=== PATIENT | male | born 1980 | race Caucasian/White ===

== ENCOUNTER 2018-06-01 04:34 | Emergency (ER) | payer BC, OTHER ==
[2018-06-01] MEDS: Lactated Ringers 1,000 ML IV SCH ×2 (05:25→09:14)
[2018-06-01] MEDS ORDERED: Ondansetron 4 MG/2 ML SDV IVPUSH PRN (05:45)
[2018-06-01] MEDS ORDERED: Pantoprazole 40 MG Vial IVPUSH SCH (05:45)
[2018-06-01] MEDS ORDERED: Lactated Ringers 1,000 ML ONE (09:14)
--- NOTE | 2018-06-02 08:44 | EDM.PDOC ---
ED HPI GENERAL MEDICAL PROBLEM - General Chief Complaint: Gastrointestinal Problem Stated Complaint: nausea and diarrhea Time Seen by Provider: 06/01/18 05:34 Source of Information: Reports: Patient History Limitations: Reports: No Limitations - History of Present Illness INITIAL COMMENTS - FREE TEXT/NARRATIVE: Smith is a 38 yo male who presents to the ED with complaints of nausea and vomiting. States symptoms started Wednesday morning. States he didn't eat anything out of the norm and thought he could fight it off but hasn't gotten any better. Reports diarrhea stools that have changed in color from orange to green to black. States he has muscle aches as well. Denies any fevers. Unable to keep anything down and hasn't been able to drink any fluids. States he still has his appendix and gallbladder. 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 [No Known Home Meds] 06/24/14 [History] Past Medical History Respiratory History: Reports: Asthma, Bronchitis, Recurrent, Pneumonia, Recurrent Neurological History: Reports: Concussion - Past Surgical History Respiratory Surgical History: Reports: None Neurological Surgical History: Reports: None Social & Family History - Family History Family Medical History: Noncontributory - Tobacco Use Smoking Status *Q: Never Smoker - Recreational Drug Use Recreational Drug Use: No ED ROS GENERAL - Review of Systems Review Of Systems: See Below Constitutional: Reports: Fatigue, Decreased Appetite. Denies: Fever, Chills HEENT: Reports: No Symptoms Respiratory: Reports: No Symptoms. Denies: Shortness of Breath Cardiovascular: Denies: Chest Pain, Lightheadedness, Palpitations GI/Abdominal: Reports: Abdominal Pain, Diarrhea, Decreased Appetite, Flatus, Nausea, Vomiting. Denies: Black Stool, Bloody Stool, Distension : Reports: No Symptoms Musculoskeletal: Reports: Muscle Stiffness Skin: Reports: No Symptoms Neurological: Reports: No Symptoms Psychiatric: Reports: No Symptoms ED EXAM, GI/ABD - Physical Exam Exam: See Below Exam Limited By: No Limitations General Appearance: Alert, Mild Distress. No: Active Emesis Eyes: Bilateral: Normal Appearance Ears: Normal External Exam, Normal Canal, Hearing Grossly Normal, Normal TMs Nose: Normal Inspection, No Blood Throat/Mouth: Normal Inspection, Normal Lips, Normal Teeth, Normal Gums, Normal Oropharynx, Normal Voice, No Airway Compromise, Other (oral mucosa is dry) Head: Atraumatic, Normocephalic Neck: Normal Inspection, Supple, Non-Tender Respiratory/Chest: No Respiratory Distress, Lungs Clear, Normal Breath Sounds, No Accessory Muscle Use Cardiovascular: Regular Rate, Rhythm, No Edema, No Murmur GI/Abdominal Exam: Soft, Abnormal Bowel Sounds (hyperactive). No: Distended, Guarding, Rigid, Rebound, Mass Extremities: Normal Inspection Neurological: Alert, Oriented, Normal Cognition, No Motor/Sensory Deficits Psychiatric: Normal Affect, Normal Mood Skin Exam: Warm, Dry, Intact, Normal Color, No Rash Course - Vital Signs Last Recorded V/S: Last Vital Signs Temp 98.0 F 06/01/18 04:51 Pulse 90 06/01/18 04:51 Resp 16 06/01/18 04:51 BP 133/99 H 06/01/18 04:51 Pulse Ox 96 06/01/18 04:51 - Orders/Labs/Meds Labs: Laboratory Tests 06/01/18 06/01/18 06/01/18 Range/Units 05:20 05:20 05:46 WBC 5.9 (5.0-10.0) 10^3/uL RBC 6.19 H (4.50-6.00) 10^6/uL Hgb 18.4 H* (14.0-18.0) g/dL Hct 50.6 (40.0-54.0) % MCV 81.7 L (82.0-94.0) fL MCH 29.7 (27.0-32.0) pg MCHC 36.4 (33.0-38.0) g/dL RDW Coeff of Yoel 13.3 (11.0-15.0) % Plt Count 244 (150-400) 10^3/uL Neut % (Auto) 65.8 (35-85) % Lymph % (Auto) 16.9 (10-55) % Pierce % (Auto) 15.0 (0-16) % Eos % (Auto) 2.0 (0-5) % Baso % (Auto) 0.3 (0-3) % Neut # (Auto) 3.90 (1.80-7.00) 10^3/uL Lymph # (Auto) 1.00 (1.00-4.80) 10^3/uL Pierce # (Auto) 0.89 H (0.00-0.80) 10^3/uL Eos # (Auto) 0.12 (0.00-0.45) 10^3/uL Baso # (Auto) 0.02 10^3/uL Sodium 140 (136-145) mEq/L Potassium 3.5 (3.5-5.0) mEq/L Chloride 104 (98-106) mEq/L Carbon Dioxide 21 (21-32) mmol/L BUN 18 (7-18) mg/dL Creatinine 1.6 H (0.7-1.3) mg/dL Est Cr Clr Drug Dosing 73.49 mL/min Estimated GFR (MDRD) 49 L (>=60) mL/min Glucose 157 H D (75-99) mg/dL Calcium 8.8 (8.4-10.1) mg/dL Magnesium 2.1 (1.8-2.4) mg/dL Total Bilirubin 0.5 (0.0-1.0) mg/dL AST 23 (15-37) U/L ALT 57 (12-78) U/L Alkaline Phosphatase 57 (46-116) U/L C-Reactive Protein 10.3 H (0.2-0.8) mg/dL Total Protein 7.9 (6.4-8.2) g/dL Albumin 4.0 (3.4-5.0) g/dL Amylase 17 L (25-115) U/L Urine Color Yellow (YELLOW) Urine Appearance Clear (CLEAR) Urine pH 6.0 (4.5-8.0) Ur Specific [place] >= 1.030 H (1.003-1.020) Urine Protein 100 H (NEGATIVE) mg/dL Urine Glucose (UA) Negative (NEGATIVE) mg/dL Urine Ketones Negative (NEGATIVE) mg/dL Urine Occult Blood Negative (NEGATIVE) Urine Nitrite Negative (NEGATIVE) Urine Bilirubin Negative (NEGATIVE) Urine Urobilinogen 0.2 (0.2-1.0) EU/dL Ur Leukocyte Esterase Negative (NEGATIVE) Urine RBC Not seen (0-5) /HPF Urine WBC 5-10 H (0-5) /HPF Hyaline Casts Occasional H (NOT SEEN) /LPF Granular Casts Occasional (NOT SEEN) /LPF Urine Mucus Few H (NOT SEEN) /HPF Meds: Medications Discontinued Medications Generic Name Dose Route Start Last Admin Trade Name Freq PRN Reason Stop Dose Admin Lactated Ringer's 1,000 mls @ 250 mls/hr 06/01/18 05:15 06/01/18 09:14 Ringers, Lactated IV 250 mls/hr ASDIRECTED JOANIE Administration Lactated Ringer's Confirm 06/01/18 09:14 06/01/18 09:14 Ringers, Lactated Administered 06/01/18 09:15 500 mls/hr Dose Administration 1,000 mls @ as directed .ROUTE .STK-MED ONE Ondansetron HCl 4 mg 06/01/18 05:45 06/01/18 05:50 Zofran IVPUSH 4 mg Q6H PRN Administration Nausea Pantoprazole Sodium 40 mg 06/01/18 05:45 06/01/18 05:51 Protonix Iv IVPUSH 40 mg Q24H JOANIE Administration Departure - Departure Time of Disposition: 12:00 Disposition: Home, Self-Care 01 Clinical Impression: Gastroenteritis - Discharge Information Instructions: Viral Gastroenteritis, Adult, [id number] Referrals: PCP,None [Primary Care Provider] - Forms: ED Department Discharge Additional Instructions: 1) Push fluids 2) Zofran 4mg - 1 tablet every 4 hours as needed for pain 3) If symptoms worsen or any concerns, recommend returning for reevaluation - Problem List & Annotations (1) Gastroenteritis SNOMED Code(s): 56167537 Code(s): K52.9 - NONINFECTIVE GASTROENTERITIS AND COLITIS, UNSPECIFIED Status: Acute - Assessment/Plan Plan: Patient was given IV fluids X 2 Liters, Zofran for nausea and Protonix. He was placed in extended ER during this time and did quite well. He was able to sleep for a few hours and then felt as if he wanted to eat. He was given toast and had no further episodes of emesis or diarrhea during his extended time in ER. He admitted to feeling a lot better and felt as if he could go home. He was discharged at this time in satisfactory condition.
== END 2018-06-01 12:45 | disposition home or self-care (01) ==
LOC: CC.ED 04:34
DX: K52.9 Noninfective gastroenteritis and colitis, unspecified (principal); Z88.1 Allergy status to other antibiotic agents
CPT/HCPCS: 36415; 80053; 81001; 82150; 83735; 85025; 86140; 96360; 96361; 96372; 99283; C9113; J2405; J7120; 96365; 96366